=== PATIENT | female | born 1970 | race Caucasian/White ===

== ENCOUNTER 2018-11-14 01:31 | Emergency (ER) | payer MEDICARE ==
[~2018-11-14] VITALS: Ht 165.1 cm; Wt 90.9 kg
[2018-11-14 01:41] VITALS: Ht 165.1 cm; Wt 90.9 kg
[2018-11-14] MEDS ORDERED: CATAPRES0.1 MG PO (01:42)
[2018-11-14] MEDS ORDERED: LOPRESSOR25 MG PO (01:42)
[2018-11-14] MEDS ORDERED: LISINOPRIL10 MG PO (01:42)
[2018-11-14] MEDS ORDERED: GLUCOPHAGE500 MG PO (01:42)
[2018-11-14] MEDS ORDERED: PRAVACHOL20 MG PO (01:43)
[2018-11-14] MEDS ORDERED: AUGMENTIN 875-11 TAB PO (02:03)
[2018-11-14] MEDS ORDERED: SCOT-TUSSI10 MG/5 ML PO (02:03)
[2018-11-14] MEDS ORDERED: ACETAMINOPHEN500 M1 PO (02:03)
== END 2018-11-14 02:13 | disposition home or self-care (01) ==
LOC: D.ER 01:31
DX: H66.91 Otitis media, unspecified, right ear (principal)

== ENCOUNTER 2020-07-25 19:56 | Emergency (ER) | payer MEDICARE ==
[~2020-07-25] VITALS: Ht 165.1 cm; Wt 90.9 kg
[~2020-07-25 19:56] MED LIST: ACETAMINOPHEN500 M1 PO; AUGMENTIN 875-11 TAB PO; CATAPRES0.1 MG PO; GLUCOPHAGE500 MG PO; LISINOPRIL10 MG PO; LOPRESSOR25 MG PO; PRAVACHOL20 MG PO; SCOT-TUSSI10 MG/5 ML PO
[2020-07-25 20:03] VITALS: BP 171/108; Ht 165.1 cm; Wt 90.9 kg
[2020-07-25 20:26] LABS: BILIRUBIN NEGATIVE (NEGATIVE); HCG URINE NEGATIVE (NEGATIVE); KETONE NEGATIVE (NEGATIVE); NITRITE NEGATIVE (NEGATIVE); UROBILINOGEN NORMAL mg/dL (< 2)
[2020-07-25 20:34] LABS: WHITE CELLS - URINE 0-5 HPF (0-4)
[2020-07-25 20:35] LABS: AMORPHOUS SEDIMENT <1+ LPF (NONE SEEN); BACTERIA MODERATE HPF (NONE SEEN)
[2020-07-25 21:18] LABS: BASOPHILS 0 % (0-2); EOSINOPHILS 0.7 % (0-7); HEMATOCRIT 36.2 % (36.0-48.0); IMMATURE GRANULOCYTES 0.2 % (0-5); LYMPHOCYTE ABS# 0.55 10x3/uL (1.18-3.74); LYMPHOCYTES 9.6 % (15-50); MCH 27.7 pg (26.0-34.0); MCHC 33.1 g/dL (31.0-37.0); MCV 83.6 fL (80.0-100.0); MEAN PLATELET VOLUME 8.7 fL (7.4-10.4); MONOCYTES 4.2 % (2-11); NEUTROPHIL ABS# 4.87 10x3/uL (1.56-6.13); NEUTROPHILS 85.3 % (40-80); PLATELET COUNT 206 10x3/uL (130-400); RBC 4.33 10x6/uL (4.00-5.40); RDW 13.1 % (11.5-14.5); WBC 5.7 10x3/uL (4.8-10.8)
[2020-07-25 21:31] LABS: ANION GAP 15.9 mmol/L (8-16); CALCIUM 7.8 mg/dL (8.5-10.1); CARBON DIOXIDE 21.5 mmol/L (21.0-32.0); CREATININE - SERUM 0.9 mg/dL (0.6-1.3); POTASSIUM - SERUM 3.4 mmol/L (3.5-5.1)
[2020-07-25 21:38] LABS: ALBUMIN 2.7 g/dL (3.4-5.0); BILIRUBIN - TOTAL 0.65 mg/dL (0.2-1.3); PROTEIN - SERUM 6.3 g/dL (6.4-8.2)
[2020-07-25] MEDS ORDERED: ZOFRAN ODT4 MG/UDTAB PO (21:51)
== END 2020-07-25 22:48 | disposition home or self-care (01) ==
LOC: D.ER 19:56
PROVIDERS: Emergency Medicine
DX: K52.9 Noninfective gastroenteritis and colitis, unspecified (principal); R11.2 Nausea with vomiting, unspecified; R10.9 Unspecified abdominal pain; I10 Essential (primary) hypertension; E87.6 Hypokalemia; E83.51 Hypocalcemia; E86.0 Dehydration; R73.9 Hyperglycemia, unspecified